=== PATIENT | male | born 1960 | race Two or more races ===

== ENCOUNTER → 2022-01-11 | Outpatient (CLI) | payer OTHER ==
[~2022-01-11] MED LIST: PROPOFOL 10 MG/ML (20ML) VIAL. IV ONE
--- NOTE | 2022-01-11 13:05 | RAD ---
EXAM: Lumbar spine, 2 views. HISTORY: Lower back pain. COMPARISON: None. FINDINGS: 2 views of the lumbar spine are obtained. There is minimal S-shaped lumbar scoliosis. There is no significant listhesis. There is multilevel endplate remodeling with disc space narrowing, oste ophytosis and vacuum phenomenon. There is sparing of the disc space at L5-S1. There is facet arthropa thy at multiple levels. There are surgical clips within the right upper quadrant. There is mild bilat eral hip osteoarthritis. 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 IMPRESSION: 1. Multilevel degenerative change, described in detail above. 2. No acute osseous finding. Electronically signed by: Jenniffer Newsome MD (01/11/2022 1:03 PM) [id number]
== END ==
LOC: RAD 12:12
PROVIDERS: ATTEND Family Medicine
DX: M47.817 Spondylosis without myelopathy or radiculopathy, lumbosacral region (principal); M16.0 Bilateral primary osteoarthritis of hip; M41.86 Other forms of scoliosis, lumbar region; M54.50 Low back pain, unspecified; Z02.71 Encounter for disability determination
CPT/HCPCS: 72100; J2704